=== PATIENT | female | born 1975 | race Caucasian/White ===

== ENCOUNTER 2017-08-19 19:14 | Emergency (ER) | payer OTHER ==
[~2017-08-19] VITALS: Ht 167.6 cm; Wt 110.2 kg
[~2017-08-19 19:14] MED LIST: ALPR1TAB2 PO
[2017-08-19 19:20] VITALS: BP 142/79
--- NOTE | 2017-08-19 19:27 | NUR ---
PT AMBULATED TO BED 10
--- NOTE | 2017-08-19 20:02 | NUR ---
42Y/F PT. PRESENTS TO ED WITH C/O ABDOMINAL PAIN X 1 HRS. PT. STATES ABDOMINAL PAIN WITH N/V, NO FEVER, NO DIARRHEA. HX. GASTRITIS. AAO X4, AMBULATORY WITH STEADY GAIT. REPSIRTAIONS, ROOM AIR, EVEN AND UNLABORED. ABDOMEN ROUND, NON TENDER, ACTIVE BX X4, C/O PAIN 9/10. VSS, ER MD MADE AWARE OF PT. STATUS.
--- NOTE | 2017-08-19 20:12 | NUR ---
Patient being evaluated by at bedside.
--- NOTE | 2017-08-19 20:26 | NUR ---
LAB AT BEDSIDE
[2017-08-19 20:40] LABS: BASOPHILS # (AUTO) 0.4 K/uL (0.00-0.22); HEMATOCRIT 31.8 % (36-48); HEMOGLOBIN 9.6 g/dL (12.0-16.0); LYMPHOCYTES # (AUTO) 1.4 K/uL (2.5-16.5); MEAN CORPUSCULAR HEMOGLOBIN 22 pg (27-31); MEAN CORPUSCULAR HGB CONC 30 g/dL (33-37); MEAN CORPUSCULAR VOLUME 73 fL (80-94); MONOCYTES # (AUTO) 0.5 K/uL (0.8-1.0); PLATELET COUNT (AUTO) 455 K/uL (140-450); RED BLOOD CELL COUNT(AUTO) 4.37 MIL/uL (4.20-5.40); RED CELL DISTRIBUTION WIDTH 17.7 % (11.6-13.7); WHITE BLOOD COUNT (AUTO) 9.3 K/uL (4.8-10.8)
[2017-08-19 20:45] LABS: APPEARANCE,URINE CLEAR (CLEAR); BILIRUBIN,URINE NEGATIVE (NEGATIVE); BLOOD, URINE NEGATIVE (NEGATIVE); COLOR,URINE YELLOW (YELLOW); LEUKOCYTE ESTERASE ,URINE NEGATIVE (NEGATIVE); NITRITE, URINE NEGATIVE (NEGATIVE); UGLUCOSE NEGATIVE (NEGATIVE)
[2017-08-19 20:52] LABS: ANION GAP 11.2 (8-16); CARBON DIOXIDE 26.5 mmol/L (21-32); CREATININE 0.8 mg/dL (0.6-1.3); POTASSIUM 3.7 mmol/L (3.5-5.1)
[2017-08-19 20:58] LABS: ALBUMIN 3.8 g/dL (3.4-5.0); TOTAL BILIRUBIN 0.3 mg/dL (0.0-1.0)
[2017-08-19 21:59] VITALS: BP 120/74
--- NOTE | 2017-08-19 22:00 | NUR ---
Patient discharged with v/s stable. Written and verbal after care instructions given and explained. Patient alert, oriented and verbalized understanding of instructions. Ambulatory with steady gait. All questions addressed prior to discharge. ID band removed. Patient advised to follow up with PMD. Rx of NORCO 5/325 MG,PRILOSEC 40 MG given. Patient educated on indication of medication including possible reaction and side effects. Opportunity to ask questions provided and answered.
== END 2017-08-19 22:00 | disposition home or self-care (01) ==
LOC: MED 19:14
DX: K29.70 Gastritis, unspecified, without bleeding (principal); Z79.899 Other long term (current) drug therapy
CPT/HCPCS: 36415; 80053; 81003; 81025; 83690; 85025; 99284

== ENCOUNTER 2018-09-18 22:18 | Emergency (ER) | payer OTHER ==
[~2018-09-18] VITALS: Ht 165.1 cm; Wt 90.7 kg
[2018-09-18 22:24] VITALS: BP 145/74
[2018-09-18] MEDS ORDERED: LORazepam 2 MG/ML VIAL IM ONE (23:05)
[2018-09-18 23:30] VITALS: BP 145/74
== END 2018-09-18 23:30 | disposition home or self-care (01) ==
LOC: MED 22:18
DX: F41.9 Anxiety disorder, unspecified (principal); Z79.899 Other long term (current) drug therapy
CPT/HCPCS: 81002; 81025; 96372; 99284; J2060; 99283

== ENCOUNTER 2018-10-06 10:49 | Emergency (ER) | payer OTHER ==
[~2018-10-06] VITALS: Ht 167.6 cm; Wt 109.8 kg
[2018-10-06 11:15] VITALS: BP 118/70
--- NOTE | 2018-10-06 11:25 | NUR ---
PATIENT PRESENTS TO ED WITH C/O RT SHOULDER PAIN, RADIATING TO HER RT ARM AND RT LOWER BACK, BL BREAST PAIN X 3 DAYS. DENIES DISCHARGE OR INJURY . PATIENT STATES PAIN OF 09/10 AT THIS TIME; VSS; PATIENT POSITIONED FOR COMFORT; HOB ELEVATED; BEDRAILS UP X2; BED DOWN. ER MD MADE AWARE OF PT STATUS.
[2018-10-06] MEDS ORDERED: KETOROLAC 60 MG/2 ML VIAL IM ONE (12:55)
[2018-10-06 13:13] VITALS: BP 118/70
== END 2018-10-06 13:13 | disposition home or self-care (01) ==
LOC: MED 10:49
DX: S46.911A Strain of unspecified muscle, fascia and tendon at shoulder and upper arm level, right arm, initial encounter (principal); F41.9 Anxiety disorder, unspecified; Z79.899 Other long term (current) drug therapy; X58.XXXA Exposure to other specified factors, initial encounter; Y93.89 Activity, other specified; Y92.89 Other specified places as the place of occurrence of the external cause; Y99.8 Other external cause status
CPT/HCPCS: 73030; 96372; 99283; J1885; Q0092

== ENCOUNTER 2020-09-06 12:16 | Emergency (ER) | payer OTHER ==
[~2020-09-06] VITALS: Ht 167.6 cm; Wt 90.7 kg
--- NOTE | 2020-09-06 12:16 | NUR ---
PATIENT OXANA ALS TO LOBBY
[2020-09-06 12:28] VITALS: BP 128/73
[2020-09-06] MEDS ORDERED: LORazepam 0.5 MG TAB PO ONE (12:30)
[2020-09-06 14:09] VITALS: BP 128/73
--- NOTE | 2020-09-06 14:09 | NUR ---
Patient discharged with v/s stable. Written and verbal after care instructions given and explained. Patient verbalized understanding. Ambulatory with steady gait. All questions addressed prior to discharge. Advised to follow up with PMD.
--- NOTE | 2020-09-06 14:09 | NUR ---
Pt c/o anxiety since last night increasing today. given 0.4 Nitro and 324 aspirin in route. medhx: anxiety
== END 2020-09-06 14:09 | disposition home or self-care (01) ==
LOC: MED 12:16
DX: F41.9 Anxiety disorder, unspecified (principal); R07.89 Other chest pain; M54.6 Pain in thoracic spine; Z79.899 Other long term (current) drug therapy
CPT/HCPCS: 71045; 93005; 99283

== ENCOUNTER 2022-08-28 15:32 | Emergency (ER) | payer OTHER ==
[~2022-08-28] VITALS: Ht 162.6 cm; Wt 90.7 kg
[2022-08-28 15:50] VITALS: BP 152/96
--- NOTE | 2022-08-28 15:56 | NUR ---
47 y/o female biba from home, c/o anxiety and chest pain that started today. 4/10 pain at this time, pt states she was also feeling nauseous, amr gave 4mg odt zofran, states relief with medication. a&ox4, ambulatory with steady gait, sinhala speaking. ermd made aware. denies n/v/d, sob, fever, chills. pmh: htn, anxiety nka med: given zofran odt enroute 4mg by amr
[2022-08-28 18:10] LABS: BASOPHILS # (AUTO) 0.1 K/uL (0.00-0.22); BASOPHILS % (AUTO) 0.8 % (0.0-2.0); EOSINOPHILS # (AUTO) 0.8 K/uL (0-0.4); HEMOGLOBIN 12.3 g/dL (12.0-16.0); LYMPHOCYTES # (AUTO) 2.4 K/uL (2.5-16.5); LYMPHOCYTES % (AUTO) 21.5 % (20.5-51.1); MEAN CORPUSCULAR HEMOGLOBIN 24 pg (27-31); MEAN CORPUSCULAR HGB CONC 32 g/dL (33-37); MEAN CORPUSCULAR VOLUME 76.2 fL (80-94); MONOCYTES # (AUTO) 0.7 K/uL (0.8-1.0); MONOCYTES % (AUTO) 6.4 % (1.7-9.3); NEUTROPHILS # (AUTO) 7.3 K/uL (1.8-7.7); NEUTROPHILS % (AUTO) 64.3 % (42.2-75.2); PLATELET COUNT (AUTO) 378 K/uL (140-450); RED BLOOD CELL COUNT(AUTO) 5.12 MIL/uL (4.20-5.40); RED CELL DISTRIBUTION WIDTH 17.9 % (11.6-13.7); WHITE BLOOD COUNT (AUTO) 11.3 K/uL (4.8-10.8)
[2022-08-28 18:52] LABS: ANION GAP 12.5 (8-16); CARBON DIOXIDE 28.2 mmol/L (21-32); CREATININE 1.1 mg/dL (0.6-1.3); POTASSIUM 3.7 mmol/L (3.5-5.1)
[2022-08-29] MEDS ORDERED: ATA25 PO (00:38)
[2022-08-29 01:07] VITALS: BP 156/82
== END 2022-08-29 01:07 | disposition home or self-care (01) ==
LOC: MED 15:32
DX: F41.9 Anxiety disorder, unspecified (principal); R07.9 Chest pain, unspecified
CPT/HCPCS: 36415; 71045; 80048; 84484; 85025; 93005; 99285

== ENCOUNTER 2022-10-14 18:27 | Emergency (ER) | payer OTHER ==
[~2022-10-14] VITALS: Ht 170.2 cm; Wt 104.3 kg
[~2022-10-14 18:27] MED LIST changes: +ATA25 PO
[2022-10-14 18:56] VITALS: BP 146/89
--- NOTE | 2022-10-14 18:56 | NUR ---
PT AMBULATED TO LOBBY
--- NOTE | 2022-10-14 20:46 | NUR ---
Dr. Diaz explained results and treatment plans.
--- NOTE | 2022-10-14 20:53 | NUR ---
Patient returned back from X-ray.
[2022-10-14] MEDS ORDERED: KETOROLAC 60 MG/2 ML VIAL IM ONE (21:45)
[2022-10-14] MEDS ORDERED: IBUP-2213 PO (22:37)
[2022-10-14] MEDS ORDERED: ACET-10509 PO (22:37)
[2022-10-14 22:48] VITALS: BP 144/89
--- NOTE | 2022-10-14 22:48 | NUR ---
Patient discharged with v/s stable. Written and verbal after care instructions given and explained. Patient alert, oriented and verbalized understanding of instructions. Ambulatory with steady gait. All questions addressed prior to discharge. ID band removed. Patient advised to follow up with PMD. Rx of Tylenol and Ibuprofen given. Patient educated on indication of medication including possible reaction and side effects. Opportunity to ask questions provided and answered.
== END 2022-10-14 22:48 | disposition home or self-care (01) ==
LOC: MED 18:27
DX: S46.811A Strain of other muscles, fascia and tendons at shoulder and upper arm level, right arm, initial encounter (principal); Z79.899 Other long term (current) drug therapy; W19.XXXA Unspecified fall, initial encounter; Y93.89 Activity, other specified; Y92.89 Other specified places as the place of occurrence of the external cause; Y99.8 Other external cause status
CPT/HCPCS: 73060; 96372; 99283; J1885